=== PATIENT | male | born 1960 | race Caucasian/White ===

== ENCOUNTER 2016-07-31 16:14 | Emergency (ER) | payer OTHER ==
[~2016-07-31 16:14] MED LIST: Iopamidol 370 76% 100 ML VIAL ONE; Iopamidol 370 76% 50 ML VIAL FS ONE
[2016-07-31] MEDS ORDERED: Pantoprazole 40 MG VIAL ONE (16:36)
[2016-07-31] MEDS ORDERED: Ondansetron HCl/PF 4 MG/2 ML Vial ONE (16:36)
[2016-07-31 17:14] LABS: ALT (SGPT) 11 U/L (8-55); AST (SGOT) 74 U/L (5-34); Albumin 3.5 g/dL (3.5-5.0); Alkaline Phosphatase 54 U/L (40-150); Anion Gap 18 mmol/L (10-20); BUN (Urea Nitrogen) 12 mg/dL (8.4-25.7); Bilirubin, Total 0.4 mg/dL (0.2-1.2); Calc. Creatinine Clearance 0 mL/min (70-130); Calcium 9.4 mg/dL (7.8-10.44); Carbon Dioxide 30 mmol/L (22-29); Chloride 88 mmol/L (98-107); Estimated GFR-MDRD Greater than 90; Globulin 4.4 g/dL (2.4-3.5); Glucose 107 mg/dL (70-105); Lipase 46 U/L (8-78); Potassium 4.3 mmol/L (3.5-5.1); Protein, Total 7.9 g/dL (6.0-8.3); Sodium 132 mmol/L (136-145)
[2016-07-31 17:21] LABS: Band 3 % (5-11); Eosinophils 1 % (0-10); Hemoglobin 11.9 g/dL (14.0-18.0); Lymphocytes 1 % (21-51); MDiff Complete? YES; Mean Corpuscular HGB CONC 33.2 g/dL (32.0-36.0); Mean Corpuscular Hemoglobin 29.7 pg (27.0-31.0); Mean Corpuscular Volume 89.5 fl (80.0-94.0); Mean Platelet Volume 6.1 fL (7.4-10.4); Monocytes 6 % (0-10); Neutrophil 89 % (42-75); Platelet Count 429 thou/uL (130-400); RBC Distribution Width 14.9 % (11.5-14.5); Red Blood Cell (RBC) Count 4.01 mill/uL (4.70-6.10); White Blood Cell (WBC) Count 12.2 thou/uL (4.8-10.8)
[2016-07-31 18:21] LABS: Bilirubin Negative (Negative); Blood, Urine Negative (Negative); Clarity Cloudy (Clear); Glucose, Urine (Dipstick) Negative (Negative); Leukocyte Negative (Negative); Nitrite Negative (Negative); Protein, Urine (Dipstick) Negative (Neg-Trace); Specific Gravity, Urine 1.015 (1.005-1.030); Urobilinogen 0.2 mg/dL (0.2-1.0); pH, Urine 7.5 (5.0-9.0)
--- NOTE | 2016-07-31 21:09 | CT ---
CT OF THE ABDOMEN AND PELVIS WITH CONTRAST: Date: 07-31-[address] of the abdomen and pelvis was obtained for evaluation of upper abdominal pain. 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 Axial slices were acquired after giving oral and IV c ontrast. Coronal reconstructions were then done. FINDINGS: A small left pleural effusion is present. The lung bases were clear otherwise. Arterial sclerotic ch fidel is seen in the coronary vessels in the aorta. The main finding on the study is massive abdominal and pelvic ascites. The liver is slightly on the small side but not nodular. There are several subcentimeter densities scattered throughout the liver , mainly the right lobe. These may just be small simple cysts, but in view of the cancer history, me tastatic disease is not excluded. No stones were seen in the gallbladder. No gross masses were seen in the adrenal glands. The pancreas appears normal. The aorta and iliac arteries are densely calcifi ed. Mild bilateral hydronephrosis is present, left greater than right. No renal masses were seen. Th e spleen is normal in size. The proximal to mid small bowel is mildly to moderately dilated, some loops measuring up to 3.5 cm i n diameter. All bowel after this point assumes a normal caliber. Thus, I cannot exclude the possibil ity of a partial small bowel obstruction given the differential in size. CT of the pelvis was mainly remarkable for the ascites present. No pelvic masses were appreciated. T here are extensive degenerative changes in the spine, particularly in the facet joints on the right side. No obvious bony mets were seen. IMPRESSION: 1. Massive ascites. 2. Small liver with several low densities which may be small cysts, but metastatic disease cannot be ruled out without an old scan due to the clinical history. 3. Mild to moderate dilatation of proximal to mid small bowel. A partial small bowel obstruction is not excluded. Follow up would probably be needed. 4. Mild bilateral hydronephrosis, left greater than right. 5. Small left pleural effusion. POS: HOME
== END 2016-07-31 19:57 | disposition short-term general hospital (02) ==
LOC: BURERS 16:14
DX: R18.8 Other ascites (principal); I10 Essential (primary) hypertension; F17.210 Nicotine dependence, cigarettes, uncomplicated
CPT/HCPCS: 74177; 80053; 81003; 83605; 83690; 85025; 96361; 96374; 96375; 96376; C9113; J2270; J2405

== ENCOUNTER 2016-08-21 19:49 | Emergency (ER) | payer OTHER ==
[~2016-08-21 19:49] MED LIST changes: -Iopamidol 370 76% 50 ML VIAL FS ONE
[2016-08-21] MEDS ORDERED: Ondansetron HCl/PF 4 MG/2 ML Vial ONE (20:36)
[2016-08-21 20:47] LABS: INR-International Normal Ratio 1.2; Prothrombin Time 15.8 SEC (12.0-14.7)
[2016-08-21 20:48] LABS: PTT 32.2 SEC (22.9-36.1)
[2016-08-21 20:52] LABS: Hemoglobin 10.5 g/dL (14.0-18.0); Mean Corpuscular HGB CONC 33.5 g/dL (32.0-36.0); Mean Corpuscular Volume 89.4 fl (80.0-94.0); Mean Platelet Volume 6.5 fL (7.4-10.4); Platelet Count 205 thou/uL (130-400); RBC Distribution Width 18.8 % (11.5-14.5); Red Blood Cell (RBC) Count 3.51 mill/uL (4.70-6.10); White Blood Cell (WBC) Count 8.1 thou/uL (4.8-10.8)
[2016-08-21 20:58] LABS: Bilirubin Negative (Negative); Blood, Urine Negative (Negative); Clarity Hazy (Clear); Glucose, Urine (Dipstick) Negative (Negative); Leukocyte Negative (Negative); Nitrite Negative (Negative); Protein, Urine (Dipstick) 30 mg/dL (Neg-Trace); Specific Gravity, Urine 1.015 (1.005-1.030); pH, Urine 6.5 (5.0-9.0)
[2016-08-21 20:58] LABS: ALT (SGPT) 13 U/L (8-55); AST (SGOT) 76 U/L (5-34); Alkaline Phosphatase 61 U/L (40-150); Anion Gap 17 mmol/L (10-20); BUN (Urea Nitrogen) 20 mg/dL (8.4-25.7); Bilirubin, Total 0.4 mg/dL (0.2-1.2); CK (CPK) 72 U/L (30-200); CKMB 0.6 ng/mL (0-6.6); Calc. Creatinine Clearance 0 mL/min (70-130); Calcium 8.8 mg/dL (7.8-10.44); Carbon Dioxide 31 mmol/L (22-29); Chloride 88 mmol/L (98-107); Estimated GFR-MDRD Greater than 90; Globulin 3.7 g/dL (2.4-3.5); Glucose 90 mg/dL (70-105); Lipase 167 U/L (8-78); Magnesium 2.3 mg/dL (1.6-2.6); Potassium 4.6 mmol/L (3.5-5.1); Protein, Total 6.7 g/dL (6.0-8.3); Sodium 131 mmol/L (136-145); Troponin I 0.012 ng/mL (< 0.028)
[2016-08-21 21:14] LABS: Manual Diff?? NO
[2016-08-21 21:15] LABS: %Eosinophils 0.7 % (0.0-10.0); %Lymphocytes 2.9 % (21.0-51.0); %Monocytes 5.6 % (0.0-10.0); %Neutrophils 89.1 % (42.0-75.0)
[2016-08-21 21:16] LABS: #Basophils 0.1 thou/uL (0.0-0.2); #Eosinphils 0.1 thou/uL (0.0-0.7); #Lymphocytes 0.2 thou/uL (1.20-3.40); #Monocytes 0.5 thou/uL (0.11-0.59); #Neutrophils 7.3 thou/uL (1.40-6.50); %Basophils 1.6 % (0.0-1.0); Hypochromia SLIGHT = 6-15 cells (100X) (0-5/hpf); MDiff Complete? YES
[2016-08-21 21:17] LABS: Anisocytosis SLIGHT = 6-15 cells (100X) (0-5/hpf); PLT Morphology Comment Appears Adequate
[2016-08-21 21:20] LABS: RBC/HPF 0-3 HPF (0-3); Squamous Epithelial 0-3 HPF (0-3); WBC/HPF 0-3 HPF (0-3)
[2016-08-21 21:21] LABS: Crystals/HPF 1+ AMORPH URATES HPF (Negative)
--- NOTE | 2016-08-21 21:24 | RAD ---
PORTABLE CHEST 08/21/16 An AP portable film at 2018 is compared with an 01/15/16 study. The heart remains normal in size. No acute infiltrate or effusion was seen. There are healing fractu res present the right 7th, 8th and 9th ribs laterally. Callus is seen forming. I do not see them on the prior exam. There is no free air beneath the diaphragm. No grossly distended bowel was seen beneath the diaphrag m. Cardiac pacer is in place as usual. IMPRESSION: Healing fractures involving the right 7th, 8th, and 9th ribs, a new finding since December 2015. Code T POS: HOME
[2016-08-21] MEDS ORDERED: Piperacillin/Tazobactam 3.375 GM VIAL ONE (22:11)
--- NOTE | 2016-08-21 22:25 | CT ---
CT ABDOMEN AND PELVIS WITH CONTRAST 08/21/16 Comparison is made with the 07/31/16 study. Axial slices were acquired after giving IV contrast. No oral contrast was used. Patchy nodular infiltrative changes are present in the right lower lobe. These were not present on . Thus it seems more likely that these are infectious in nature than not. There are no large effus ions. A small amount of pleural fluid is present on the left side, but no more so than before. Previously, one saw several nondescript small cystic areas scattered throughout the liver. These are present today but have all increased in size and show peripheral enhancement. My initial considerat ion would be multiple small hepatic abscesses of uncertain etiology. Metastatic disease is in the di fferential, however, it would seem unusual for such to have grown this much in a short time. For exa mple, one cystic area in the dome of the liver was 0.9 cm before and today it is 2 cm. The spleen is normal in size. The pancreas shows no gross mass, but the main pancreatic duct seemed a little more prominent in size today than before. It measures about 3 mm in caliber. No gross mass was appreciat ed. The kidneys show some mild hydronephrosis bilaterally as before. The degree is certainly no wors e than previously and may actually be a little less. The aorta shows arteriosclerotic change but no aneurysm. Massive ascites is present, as previously. The amount of fluid present has increased over time. Mild ly dilated fluid filled loops of small bowel are present. The degree of dilation is less than previo usly with most loops being under [address] of the pelvis was mainly remarkable for the fluid present. No pelvic mass was appreciated. Air is seen in the urinary bladder that I presume is from a Cantu catheter. IMPRESSION: 1. Interval increase in size of the cystic lesions of the liver since three weeks ago with radha pheral enhancement around many of them. Multiple small abscesses would be the most likely diagnosis. Rapidly enlarging metastatic disease would be in the differential but less likely given the time co urse and growth. 2. Nodular opacities in the right lower lobe that are presumed to be infection since the area w as clear three weeks ago. 3. Mild bilateral hydronephrosis, no worse than before and possibly a little less. 4. Mild prominence of the size of the main pancreatic duct, more so than before. 5. Massive ascites with increase in amount of fluid over the interval. 6. Mild small bowel dilatation, fluid filled, but no worse than previous scan. Findings discussed with Dr. Zambrano at [id number] on 08/21/16. POS: HOME
== END 2016-08-21 22:46 | disposition short-term general hospital (02) ==
LOC: BURERS 19:49
DX: E86.0 Dehydration (principal); E87.1 Hypo-osmolality and hyponatremia; R62.7 Adult failure to thrive; R18.8 Other ascites; I10 Essential (primary) hypertension; F17.210 Nicotine dependence, cigarettes, uncomplicated; Z79.899 Other long term (current) drug therapy
CPT/HCPCS: 51702; 71010; 74177; 80053; 81003; 81015; 82553; 83605; 83690; 83735; 84484; 85025; 85610; 85730; 87040; 93005; 94760; 96361; 96374; 96375; A4216; J2270; J2405; J2543; J3370